=== PATIENT | male | born 2005 | race Two or more races ===

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

== ENCOUNTER 2024-04-25 00:36 | Emergency (ER) | payer OTHER, SELFPAY ==
[2024-04-25 00:58] LABS: #Basophils 0.04 10x3/uL (0.0-0.2); %Basophils 0.4 % (0.0-1.0); %Eosinophils 1.7 % (0.0-10.0); %Lymphocytes 23.7 % (28.0-48.0); %Monocytes 6.3 % (0.0-4.0); %Neutrophils 67.5 % (31.0-61.0); Hematocrit 44.6 % (42.0-52.0); Hemoglobin 15.1 g/dL (14.0-18.0); Mean Corpuscular HGB CONC 33.9 g/dL (32.0-36.0); Mean Corpuscular Hemoglobin 29.1 pg (25.0-35.0); Mean Corpuscular Volume 85.9 fL (78.0-98.0); Mean Platelet Volume 9.9 fL (7.4-10.4); Platelet Count 218 10x3/uL (130-400); RBC Distribution Width 13.7 % (11.5-14.5); Red Blood Cell (RBC) Count 5.19 mill/uL (4.00-5.20)
[2024-04-25 01:14] LABS: Alcohol Less than 10.0 mg/dL (Less than 10)
[2024-04-25 01:17] LABS: ALT (SGPT) 13 U/L (8-55); AST (SGOT) 23 U/L (10-45); Alkaline Phosphatase 61 U/L (50-130); Anion Gap 20 mmol/L (10-20); BUN (Urea Nitrogen) 9 mg/dL (8.4-21.0); Bilirubin, Total 0.4 mg/dL (0.2-1.2); Calc. Creatinine Clearance 0 mL/min (70-130); Calcium 8.9 mg/dL (7.8-10.44); Carbon Dioxide 20 mmol/L (22-29); Chloride 104 mmol/L (98-107); Estimated GFR 107; Globulin 3.6 g/dL (2.4-3.5); Glucose 100 mg/dL (70-105); Lipase 18 U/L (8-78); Potassium 3.8 mmol/L (3.5-5.1); Protein, Total 7.6 g/dL (6.0-8.3); Sodium 140 mmol/L (136-145)
[2024-04-25] MEDS ORDERED: Morphine 4 MG/ML VIAL ONE (01:17)
[2024-04-25] MEDS ORDERED: Ondansetron PF 4 MG/2 ML Vial ONE (01:17)
[2024-04-25 01:21] LABS: Troponin I Less than 0.010 ng/mL (< 0.028)
[2024-04-25 01:27] LABS: INR-International Normal Ratio 0.9; Prothrombin Time 12.6 sec (12.0-14.7)
[2024-04-25 01:28] LABS: Actual Bicarbonate (HCO3v) 20.4 mEq/L (22-28); Base Excess -3.1 mEq/L (-2.0 to +3.0); Calcium, Ionized (venous) 1.04 mmol/L (1.16-1.32); Chloride (VBG) 103 mmol/L (98-106); Hematocrit-VBG 42 % (42.0-52.0); Hemoglobin (Hb) 14.4 g/dL (13.2-17.3); Potassium (VBG) 3.44 mmol/L (3.70-5.30); Sodium 139 mmol/L (133-146); pH (venous) 7.415 (7.32-7.43)
[2024-04-25 01:28] LABS: PTT 24.1 sec (22.9-36.1)
[2024-04-25] MEDS ORDERED: Boostrix 0.5 ML (Tdap) VIAL (>/=7 yrs of age) ONE (01:28)
[2024-04-25] MEDS ORDERED: CEFAZOLIN 2 GM VIAL ONE (01:34)
[2024-04-25] MEDS ORDERED: Lidocaine 1% MPF 2 ML VIAL ONE (02:03)
[2024-04-25] MEDS ORDERED: Clindamycin 150 MG CAP ONE (03:20)
[2024-04-25] MEDS ORDERED: Iopamidol-370 76% 500 ML MDV (1 ML CHARGE) ONE (11:44)
== END 2024-04-25 03:59 | disposition home or self-care (01) ==
LOC: ERS 00:36
DX: S31.144A Puncture wound of abdominal wall with foreign body, left lower quadrant without penetration into peritoneal cavity, initial encounter (principal); S01.451A Open bite of right cheek and temporomandibular area, initial encounter; S20.229A Contusion of unspecified back wall of thorax, initial encounter; X99.1XXA Assault by knife, initial encounter
CPT/HCPCS: 12001; 36415; 70450; 71260; 72125; 74177; 80053; 80307; 82805; 83690; 84484; 85025; 85610; 85730; 86850; 86900; 86901; 90471; 90715; 93005; 94760; 96374; 96375; J2272; J2405; Q9967

== ENCOUNTER 2025-05-03 09:23 | Emergency (ER) | payer SELFPAY ==
[2025-05-03] MEDS ORDERED: Ibuprofen 800 MG TAB ONE (09:46)
[2025-05-03] MEDS ORDERED: predniSONE 20 MG TAB ONE (09:58)
== END 2025-05-03 10:26 | disposition home or self-care (01) ==
LOC: ERS 09:23
DX: J45.901 Unspecified asthma with (acute) exacerbation (principal); J06.9 Acute upper respiratory infection, unspecified; F17.290 Nicotine dependence, other tobacco product, uncomplicated
CPT/HCPCS: 71045; 87428; J7512